=== PATIENT | male | born 1995 | race Native Hawaiian/Other Pacific Islander ===

== ENCOUNTER → 2021-04-28 | Outpatient (CLI) | payer OTHER ==
[~2021-04-28] MED LIST: BACTRIM DS 8001 TA1 PO; KEFLEX500 MG PO; LOTRIMIN1% TP; PREDNICOT20 MG PO; ROBITUSSIN DM 105 ML PO; VIBRAMYCIN100 MG PO
== END | disposition home or self-care (01) ==
LOC: RAD 15:56
PROVIDERS: ATTEND Family Medicine
DX: M40.294 Other kyphosis, thoracic region (principal); M54.2 Cervicalgia

== ENCOUNTER 2021-08-27 11:25 | Emergency (ER) | payer OTHER ==
[2021-08-27] MEDS ORDERED: Motrin,Rufen800 MG PO (14:55)
[2021-08-27] MEDS ORDERED: HYDROCODONE-AC1 EAC1 PO (14:55)
== END 2021-08-27 15:03 | disposition home or self-care (01) ==
LOC: ED 11:25
DX: S82.891A Other fracture of right lower leg, initial encounter for closed fracture (principal); S50.01XA Contusion of right elbow, initial encounter; V89.2XXA Person injured in unspecified motor-vehicle accident, traffic, initial encounter; Y93.89 Activity, other specified; Y92.89 Other specified places as the place of occurrence of the external cause; Y99.8 Other external cause status

== ENCOUNTER 2022-07-24 14:24 | Emergency (ER) | payer SELFPAY ==
[~2022-07-24] VITALS: Ht 175.2 cm; Wt 81.6 kg
[~2022-07-24 14:24] MED LIST changes: +HYDROCODONE-AC1 EAC1 PO; +Motrin,Rufen800 MG PO
[2022-07-24] MEDS ORDERED: MELATONIN10 M3 PO (14:34)
[2022-07-24] MEDS ORDERED: AMOX-CLAV 875-1 EACH PO (16:32)
== END 2022-07-24 16:38 | disposition home or self-care (01) ==
LOC: ED 14:24
DX: S62.633A Displaced fracture of distal phalanx of left middle finger, initial encounter for closed fracture (principal); Z90.89 Acquired absence of other organs; W26.0XXA Contact with knife, initial encounter; Y93.89 Activity, other specified; Y92.89 Other specified places as the place of occurrence of the external cause; Y99.8 Other external cause status

== ENCOUNTER 2024-11-17 11:10 | Emergency (ER) | payer SELFPAY ==
[~2024-11-17] VITALS: Ht 180.3 cm; Wt 79.4 kg
[~2024-11-17 11:10] MED LIST changes: +AMOX-CLAV 875-1 EACH PO; +MELATONIN10 M3 PO
[2024-11-17] MEDS ORDERED: Gelatin Sponge 1 EACH SPON T ONE (11:45)
[2024-11-17] MEDS ORDERED: Bacitracin Zinc 14 GM TUBE T ONE (11:45)
[2024-11-17] MEDS ORDERED: CEPHALEXIN 500 MG CAP PO ONE (11:45)
[2024-11-17] MEDS ORDERED: CEPHALEXIN500 M1 PO (11:52)
== END 2024-11-17 11:59 | disposition home or self-care (01) ==
LOC: ED 11:10
DX: S61.213A Laceration without foreign body of left middle finger without damage to nail, initial encounter (principal); S61.215A Laceration without foreign body of left ring finger without damage to nail, initial encounter; F90.9 Attention-deficit hyperactivity disorder, unspecified type; F32.A Depression, unspecified; Z90.89 Acquired absence of other organs; W27.0XXA Contact with workbench tool, initial encounter; Y93.89 Activity, other specified; Y92.89 Other specified places as the place of occurrence of the external cause; Y99.8 Other external cause status